=== PATIENT | female | born 1975 | race Caucasian/White ===

== ENCOUNTER 2019-07-28 06:17 | Day surgery (SDC) | payer OTHER ==
[2019-07-27 10:58] VITALS: BMI 24.5
[2019-07-28] MEDS ORDERED: LIDOCAINE 1%-EPI 1:100,000 30 ML MDV IJ ONE (07:17)
[2019-07-28] MEDS ORDERED: MIDAZOLAM HCL 2 MG/2 ML SINGLE DOSE VIAL ONE (07:26)
[2019-07-28] MEDS ORDERED: ROCURONIUM BROMIDE 50 MG/5 ML SYRINGE ONE (07:26)
[2019-07-28] MEDS ORDERED: PROPOFOL 20 ML ONE ×3 (07:26→08:07)
[2019-07-28] MEDS ORDERED: SUCCINYLCHOLINE CHLORIDE 200 MG/10 ML SYRINGE ONE (07:26)
[2019-07-28] MEDS ORDERED: LIDOCAINE HCL/PF 2% SDV 5ML VIAL ONE (07:27)
--- NOTE | 2019-07-28 07:40 | HP ---
Admitting History and Physical - Admission Chief Complaint: Hoarseness, vocal cord nodule/polyp R>L. Sx are chronic History Source: Patient Limitations to Obtaining History: No Limitations - Past Medical History Cardiovascular: Yes: HTN, [place] ...LMP: 07/16/19 Musculoskeletal: Yes: Other (Goldsmith's palsy) - Smoking History Smoking history: Never smoked Have you smoked in the past 12 months: No - Alcohol/Substance Use Hx Alcohol Use: No Home Medications - Allergies Allergies/Adverse Reactions: Allergies Allergy/AdvReac Type Severity Reaction Status Date / Time No Known Drug Allergies Allergy Verified 07/28/19 06:55 - Home Medications Home Medications: Ambulatory Orders Aspirin [Aspirin EC] 81 mg PO DAILY 07/28/19 Clonidine HCl 0.1 mg PO DAILY 07/28/19 Ezetimibe 10 mg PO DAILY 07/28/19 Ferrous Sulfate 325 mg PO DAILY 07/28/19 Lurasidone HCl [Latuda -] 20 mg PO BID 07/28/19 Nifedipine [Adalat cc] 30 mg PO ASDIR 07/28/19 Ranitidine HCl 300 mg PO HS 07/28/19 Sitagliptin Phos/Metformin HCl [Janumet 50-1,000 mg Tablet] 1 each PO BID Physical Examination Vital Signs: Vital Signs Temperature 98.1 F 07/28/19 07:08 Pulse Rate 72 07/28/19 07:08 Respiratory Rate 16 07/28/19 07:08 Blood Pressure 140/94 07/28/19 07:08 O2 Sat by Pulse Oximetry (%) Constitutional: Yes: Well Nourished, No Distress, Calm Eyes: Yes: WNL, Conjunctiva Clear, EOM Intact HENT: Yes: WNL, Atraumatic, Normocephalic Neck: Yes: WNL, Supple, Trachea Midline Cardiovascular: Yes: WNL, Regular Rate and Rhythm Respiratory: Yes: WNL, Regular, CTA Bilaterally Gastrointestinal: Yes: WNL, Normal Bowel Sounds, Soft Musculoskeletal: Yes: WNL Extremities: Yes: WNL Problem List - Problems (1) Polyp of vocal cord or larynx Assessment/Plan: Direct susp microlaryngoscopy and excision. Risks and benefits discussed including, not limited to bleeding, infection, recurrence, dental injury, chronic hoarseness, non improvement, tracheotomy. All questions were answered. Code(s): J38.1 - POLYP OF VOCAL CORD AND LARYNX
[2019-07-28] MEDS ORDERED: NALOXONE HCL 0.4 MG/ML VIAL ONE (08:40)
[2019-07-28] MEDS ORDERED: LACTATED RINGERS SOLUTION 1,000 ML IV SCH (09:15)
[2019-07-28] MEDS ORDERED: oxyCODONE HCL 5 MG TABLET PO PRN (09:15)
[2019-07-28] MEDS ORDERED: ONDANSETRON 4 MG/2 ML VIAL IVPUSH PRN (09:15)
[2019-07-28 10:45] VITALS: TEMP 97.5
[2019-07-28] MEDS ORDERED: ONDANSETRON 4 MG/2 ML VIAL ONE (12:51)
[2019-07-28] MEDS ORDERED: ONDANSETRON 4 MG/2 ML VIAL IVPB ONE (12:55)
[2019-07-28 14:20] VITALS: BP 130/73; PULSE 69
--- NOTE | 2019-07-29 19:24 | PATH ---
Surgical Pathology Report Patient Name: KEM KEENAN [facility]. Rec. #: [id number] /Age/Gender: 1975 (Age: 43) / F Account: [id number] Location: [facility] SURGICAL Taken: 07/28/2019 Received: 07/28/2019 Reported: 07/29/2019 Physicians: Guy Willis M.D. Specimen(s) Received RT VOCAL CORD POLYP Clinical History Benign neoplasm of larynx Final Diagnosis RIGHT VOCAL CORD POLYP, EXCISION: CONSISTENT WITH VOCAL CORD POLYP. Electronically Signed Tameka Webb M.D. Gross Description Received in formalin labeled "right vocal cord polyp," is a 0.5 cm in greatest dimension dillard soft tissue fragment. The specimen is submitted in toto in one cassette. /07/28/201907/28/2019
--- NOTE | 2019-08-03 13:42 | OP ---
DATE OF OPERATION: 07/28/2019 SURGEON: Guy Willis MD ANESTHESIA: General endotracheal with a No. 6 tube. PREOPERATIVE DIAGNOSIS: Vocal cord polyp. POSTOPERATIVE DIAGNOSIS: Vocal cord polyp. PROCEDURE: Direct suspension microlaryngoscopy and excision of polyp/lesion. COMPLICATIONS: 0. Risks and benefits were discussed with the patient including, but not limited to, injury to the teeth, throat pain, recurrence of the annoying problem, continued hoarseness. INDICATION FOR THIS PROCEDURE: This is a woman with several years of constant hoarseness with a significant polyp noted on the right side and a nodule on the left side. DESCRIPTION OF PROCEDURE: Patient was brought to the operating room, placed under general anesthesia with a 6 tube. The laryngoscope was introduced and suspended with protection of upper dentition with 4 x 5 gauzes. There were no lesions of the oral cavity, hypopharynx, epiglottis, arytenoids. Visualization of the vocal cords revealed a polypoid, edematous polyp of the right side, which was resected using a combination of biting microlaryngoscopy forceps with an angled scissor using a 400-mm lens on operative microscope. The left vocal cord had a small nodule that appeared to be reactive to the right polyp. This was left in place. Hemostasis was achieved using cottonoids with 1% lidocaine with 1:100,000 epinephrine. After the procedure, the laryngoscope was withdrawn. The dentition was re-examined, and no damage was noted. The patient was then extubated in the operating room and brought to recovery room in stable condition. Madeleine [id number]
== END 2019-07-28 14:10 | disposition home or self-care (01) ==
LOC: JASU-SURG 06:17
PROVIDERS: ATTEND Otolaryngology
PROC: 0CBT8ZX Excision of Right Vocal Cord, Via Natural or Artificial Opening Endoscopic, Diagnostic (ICD-10-PCS; principal; 2019-07-28 08:04)
DX: J38.1 Polyp of vocal cord and larynx (principal); I10 Essential (primary) hypertension; E11.9 Type 2 diabetes mellitus without complications; D64.9 Anemia, unspecified
CPT/HCPCS: 82962; 84703; 88305-TC; 94760